=== PATIENT | male | born 1985 | race Caucasian/White ===

== ENCOUNTER 2021-08-29 04:46 | Day surgery (SDC) | payer BC ==
[2021-08-24 13:22] VITALS: BMI 31.3
[2021-08-29] MEDS ORDERED: LIDOCAINE HCL 1%, 10 MG/ML (20ML VIAL) ONE (10:24)
[2021-08-29] MEDS ORDERED: BUPIVACAINE HCL/PF 0.5% (5MG/ML) 10 ML VIAL ONE (10:24)
[2021-08-29] MEDS ORDERED: MIDAZOLAM HCL 2 MG/2 ML SINGLE DOSE VIAL ONE ×2 (10:32)
[2021-08-29] MEDS ORDERED: PROPOFOL 20 ML ONE ×4 (10:32→10:55)
[2021-08-29] MEDS ORDERED: ceFAZolin SODIUM 1 GM VIAL IVPB ONE (10:55)
[2021-08-29] MEDS ORDERED: KETAMINE HCL 200 MG/20 ML VIAL ONE (10:57)
[2021-08-29] MEDS ORDERED: LIDOCAINE HCL 1%, 10 MG/ML (20ML VIAL) INF ONE ×2 (11:12)
[2021-08-29] MEDS ORDERED: BUPIVACAINE HCL/PF 0.5% (5MG/ML) 10 ML VIAL IJ ONE ×2 (11:12)
[2021-08-29] MEDS ORDERED: ONDANSETRON 4 MG/2 ML VIAL IVPUSH PRN (12:04)
[2021-08-29] MEDS ORDERED: oxyCODONE HCL 5 MG TABLET PO PRN ×2 (12:04)
[2021-08-29 14:50] VITALS: BP 118/62; PULSE 77; TEMP 98.1
== END 2021-08-29 13:55 | disposition home or self-care (01) ==
LOC: JASU-SURG 04:46
PROVIDERS: ATTEND Urology
PROC: 0VBQ0ZZ Excision of Bilateral Vas Deferens, Open Approach (ICD-10-PCS; principal; 2021-08-29 11:00)
DX: Z30.2 Encounter for sterilization (principal)
CPT/HCPCS: 88302-TC